=== PATIENT | female | born 1990 | race American Indian/Alaskan Native ===

== ENCOUNTER 2017-04-26 09:09 | Emergency (ER) | payer MEDICAID ==
[2017-04-26 09:24] VITALS: BP 105/66
[2017-04-26 11:15] LABS: Hematocrit 29.3 % (30.3-42.9); Hemoglobin 9.6 gm/dl (10.1-14.3); Mean Corpuscular HGB Conc 33 % (30-34); Mean Corpuscular Volume 78 fl (79-97); Platelet Count 209 K/mm3 (140-440); Red Blood Count 3.73 M/mm3 (3.65-5.03); Red Cell Distribution Width 15.9 % (13.2-15.2); White Blood Count 7.4 K/mm3 (4.5-11.0)
[2017-04-26 11:16] LABS: Mean Corpuscular Hemoglobin 26 pg (28-32)
[2017-04-26 11:35] LABS: Albumin 3.3 g/dL (3.9-5); Albumin/Globulin Ratio 1.1 %; Alkaline Phosphatase 131 units/L (35-129); Anion Gap 18 mmol/L; Blood Urea Nitrogen 7 mg/dL (7-17); Calcium 8.6 mg/dL (8.4-10.2); Carbon Dioxide 20 mmol/L (22-30); Chloride 103.3 mmol/L (98-107); Glucose 83 mg/dL (65-100); Potassium 3.6 mmol/L (3.6-5.0); Sodium 138 mmol/L (137-145); Total Protein 6.2 g/dL (6.3-8.2)
[2017-04-26 11:40] LABS: Alanine Aminotransferase < 5 units/L (7-56)
[2017-04-26 12:06] LABS: Basophils % (Manual) 0 % (0.0-1.8); Blastocytes % (Manual) 0 %
[2017-04-26 12:07] LABS: Anisocytosis 1+
[2017-04-26 12:13] LABS: Diff Status Complete
--- NOTE | 2017-04-26 14:03 | Emergency Department Report ---
Entered by EVELINA DAN, acting as scribe for JUNG VAZQUEZ NP. - General Chief complaint: Skin Rash Stated complaint: 34 WEEKS , RASH ALL OVER Time Seen by Provider: 04/26/17 10:08 Source: patient Mode of arrival: Ambulatory Limitations: No Limitations - History of Present Illness Initial comments: 26 y/o female that is 34 weeks with a PMHx of anemia presents to the ED c/o a rash to abdomen that began 2 days ago. Patient states the rash has spread to her trunk since onset. Describes the rash as burning in quality due to the constant scratching. Associated symptom includes itching to the affected area, but she denies fever, chills, nausea, vomiting, chest pain, and SOB. Applied [place] butter with some relief of itching. Patient states she was seen by her OB, Dr. Shakila Donohue, last week. Reports her OB saw the rash, but did not diagnose the rash or prescribe her any medication. Denies being in contact with anyone that has a similar rash. NKDA. BARRON complaint: rash Onset/Timin -: days(s) Tetanus Up to Date: unsure Location: buttocks Severity: mild Severity scale (0 -10): 0 Quality: burning Consistency: constant Improves with: none Worsens with: none Context: none Associated symptoms: denies other symptoms, itching Treatments Prior to Arrival: other ([place] butter) - Related Data Home Medications Medication Instructions Recorded Confirmed Last Taken medroxyPROGESTERone ACETATE 150 mg ID [id number] 12/30/13 12/30/13 10/02/13 08:00 [Depo-Provera (Contraception)] Previous Rx's Medication Instructions Recorded Last Taken Type Ferrous Sulfate [Feosol 325 MG tab] 325 mg PO DAILY #30 tablet 12/30/13 Unknown Rx Nitrofurantoin [place]/M-Cryst 100 mg PO Q12HR #14 capsule 04/20/15 Unknown Rx [Macrobid CAP] Allergies Allergy/AdvReac Type Severity Reaction Status Date / Time No Known Allergies Allergy Verified 12/30/13 00:06 Abscess Boil HPI - HPI Chief Complaint: Skin Rash Stated Complaint: 34 WEEKS , RASH ALL OVER Time Seen by Provider: 04/26/17 10:08 Home Medications: Home Medications Medication Instructions Recorded Confirmed Last Taken medroxyPROGESTERone ACETATE 150 mg ID [id number] 12/30/13 12/30/13 10/02/13 08:00 [Depo-Provera (Contraception)] Previous Rx's Medication Instructions Recorded Last Taken Type Ferrous Sulfate [Feosol 325 MG tab] 325 mg PO DAILY #30 tablet 12/30/13 Unknown Rx Nitrofurantoin [place]/M-Cryst 100 mg PO Q12HR #14 capsule 04/20/15 Unknown Rx [Macrobid CAP] Allergies/Adverse Reactions: Allergies Allergy/AdvReac Type Severity Reaction Status Date / Time No Known Allergies Allergy Verified 12/30/13 00:06 ED Review of Systems Comment: All other systems reviewed and negative Constitutional: denies: chills, fever Eyes: denies: eye pain, eye discharge, vision change ENT: denies: ear pain, throat pain Respiratory: denies: cough, shortness of breath, wheezing Cardiovascular: denies: chest pain, palpitations Endocrine: no symptoms reported Gastrointestinal: denies: abdominal pain, nausea, vomiting, diarrhea Genitourinary: denies: urgency, dysuria, discharge Musculoskeletal: denies: back pain, joint swelling, arthralgia, myalgia Skin: rash (to abdomen and trunk with associated itching). denies: lesions Neurological: denies: headache, weakness, numbness, paresthesias ED Past Medical Hx - Past Medical History Previous Medical History?: Yes Hx Psychiatric Treatment: No Additional medical history: Anemia after recent section, noncompliant with iron, Vaginal delivery x 1 - Surgical History Past Surgical History?: Yes Additional Surgical History: c section x2 - Family History Family history: no significant - Social History Smoking Status: Never Smoker Substance Use Type: None - Medications Home Medications: Home Medications Medication Instructions Recorded Confirmed Last Taken Type Ferrous Sulfate [Feosol 325 MG tab] 325 mg PO DAILY #30 tablet 12/30/13 Unknown Rx medroxyPROGESTERone ACETATE 150 mg ID [id number] 12/30/13 12/30/13 10/02/13 08:00 History [Depo-Provera (Contraception)] Nitrofurantoin [place]/M-Cryst 100 mg PO Q12HR #14 capsule 04/20/15 Unknown Rx [Macrobid CAP] ED Physical Exam - General Limitations: No Limitations General appearance: alert, in no apparent distress - Head Head exam: Present: atraumatic, normocephalic - Eye Eye exam: Present: normal appearance Pupils: Present: normal accommodation - ENT ENT exam: Present: normal exam, mucous membranes moist, normal external ear exam - Neck Neck exam: Present: normal inspection, full ROM. Absent: tenderness, lymphadenopathy - Respiratory Respiratory exam: Present: normal lung sounds bilaterally. Absent: respiratory distress, wheezes, rales, rhonchi, stridor - Cardiovascular Cardiovascular Exam: Present: regular rate, normal rhythm, normal heart sounds. Absent: systolic murmur, diastolic murmur, rubs, gallop - GI/Abdominal GI/Abdominal exam: Present: soft, distended (gravid abdomen), normal bowel sounds. Absent: tenderness - Extremities Exam Extremities exam: Present: normal inspection, full ROM, normal capillary refill - Back Exam Back exam: Present: normal inspection, full ROM - Neurological Exam Neurological exam: Present: alert, oriented X3, normal gait - Psychiatric Psychiatric exam: Present: normal affect, normal mood - Skin Skin exam: Present: warm, dry, intact, rash (urticarial rash to abdomen and trunk with excoriations to low back) ED Course Vital Signs 04/26/17 09:22 Temperature 98.1 F Pulse Rate 72 Respiratory 20 Rate Blood Pressure 105/66 O2 Sat by Pulse 99 Oximetry - Reevaluation(s) Reevaluation #1: 04/26/17 13:00 PT not in room Reevaluation #2: 04/26/17 14:01 PT has not returned to room, assume pt eloped - Pulse Oximetry Interpretation Digit-Finger Initial Pulse Oximetry Readin Actions Taken: none ED Medical Decision Making - Lab Data Result diagrams: 04/26/17 11:01 04/26/17 11:01 Labs 04/26/17 04/26/17 11:01 11:01 WBC 7.4 RBC 3.73 Hgb 9.6 L Hct 29.3 L MCV 78 L MCH 26 L MCHC 33 RDW 15.9 H Plt Count 209 Add Manual Diff Complete Total Counted 100 Seg Neuts % (Manual) 71.0 H Band Neutrophils % 1.0 Lymphocytes % (Manual) 13.0 L Reactive Lymphs % (Man) 0 Monocytes % (Manual) 13.0 H Eosinophils % (Manual) 2.0 Basophils % (Manual) 0 Metamyelocytes % 0 Myelocytes % 0 Promyelocytes % 0 Blast Cells % 0 Nucleated RBC % Not Reportable Seg Neutrophils # Man 5.3 Band Neutrophils # 0.1 Lymphocytes # (Manual) 1.0 L Abs React Lymphs (Man) 0.0 Monocytes # (Manual) 1.0 H Eosinophils # (Manual) 0.1 Basophils # (Manual) 0.0 Metamyelocytes # 0.0 Myelocytes # 0.0 Promyelocytes # 0.0 Blast Cells # 0.0 WBC Morphology Not Reportable Hypersegmented Neuts Not Reportable Hyposegmented Neuts Not Reportable Hypogranular Neuts Not Reportable Smudge Cells Not Reportable Toxic Granulation Not Reportable Toxic Vacuolation Not Reportable Dohle Bodies Not Reportable Pelger-Huet Anomaly Not Reportable Geena Rods Not Reportable Platelet Estimate Not Reportable Clumped Platelets Not Reportable Plt Clumps, EDTA Not Reportable Large Platelets Not Reportable Giant Platelets Not Reportable Platelet Satelliting Not Reportable Plt Morphology Comment Not Reportable RBC Morphology Not Reportable Dimorphic RBCs Not Reportable Polychromasia Not Reportable Hypochromasia Not Reportable Poikilocytosis Not Reportable Anisocytosis 1+ Microcytosis Not Reportable Macrocytosis Not Reportable Spherocytes Not Reportable Pappenheimer Bodies Not Reportable Sickle Cells Not Reportable Target Cells Not Reportable Tear Drop Cells Not Reportable Ovalocytes Not Reportable Helmet Cells Not Reportable Yadav[place] Bodies Not Reportable [place] Rings Not Reportable Linda Cells Not Reportable Bite Cells Not Reportable Crenated Cell Not Reportable Elliptocytes Not Reportable Acanthocytes (Spur) Not Reportable Rouleaux Not Reportable Hemoglobin C Crystals Not Reportable Schistocytes Not Reportable Malaria parasites Not Reportable Vincent Bodies Not Reportable Hem Pathologist Commnt No Sodium 138 Potassium 3.6 Chloride 103.3 Carbon Dioxide 20 L Anion Gap 18 BUN 7 Creatinine 0.5 L Estimated GFR > 60 BUN/Creatinine Ratio 14.00 Glucose 83 Calcium 8.6 Total Bilirubin 0.30 AST 13 ALT < 5 L Alkaline Phosphatase 131 H Total Protein 6.2 L Albumin 3.3 L Albumin/Globulin Ratio 1.1 - Differential Diagnosis rash, PUPPS Critical Care Time: No ED Disposition Clinical Impression: Rash and nonspecific skin eruption Anemia Qualifiers: Anemia type: unspecified type Qualified Code(s): D64.9 - Anemia, unspecified Disposition: Z- ELOPED Is pt being admited?: No Does the pt Need Aspirin: No Condition: Stable Instructions: Acute Rash (ED), Anemia (ED) Referrals: PRIMARY CAREMD [Primary Care Provider] - 3-5 Days SHAKILA DONOHUE MD [Referring] - 3-5 Days Time of Disposition: 14:02 This documentation as recorded by the SY bryant JASMINE,accurately reflects the service I personally performed and the decisions made by ,JUNG VAZQUEZ, [employer]ANNING WHE[employer]ER.
== END 2017-04-26 14:02 | disposition left against medical advice (07) ==
LOC: ED 09:09
DX: O99.013 Anemia complicating pregnancy, third trimester (principal); Z3A.34 34 weeks gestation of pregnancy; R21 Rash and other nonspecific skin eruption
CPT/HCPCS: 36415; 80053; 85007; 85025; 99283